=== PATIENT | female | born 1950 | race Caucasian/White ===

== ENCOUNTER 2016-12-20 16:51 | Emergency (ER) | payer OTHER ==
[~2016-12-20 16:51] MED LIST: AMLODIPINE BESYL5 MG PO; BENICAR20 MG PO; BYDUREON IM; COUMADIN2 MG PO; DURAGESIC25 MCG/HR TOP; FOLIC ACID1 MG PO; HUMALOG100 MG/ML SC; ISOSORBIDE MONO30 MG PO; LEVEMIR FL100 UNIT/M SC; LOMOTIL2.5 MG PO; LYRICA25 MG PO; METOPROLOL TAR100 MG PO; METOPROLOL TART25 MG PO; NORCO1 TA1 PO; O2; PREDNISONE10 MG PO; PREDNISONE5 MG PO; TRIAMCINOLONE A0.11 TOP; ZOLOFT50 MG PO
--- NOTE | 2016-12-20 17:54 | DIAGNOSTIC IMAGING REPORT ---
PROCEDURE: XR CHEST 1 VIEW INDICATION: CHEST PAIN TECHNIQUE: Portable AP view 05:50 p.m. COMPARISON: Chest 02/25/1969 02/24/2016 FINDINGS: Poor inspiration. Enlarged right hilum. Mildly increased and lying lung markings. Heart size and pulmonary vessels are normal. Right IJ Port-A-Cath in place with its tip projecting over the right atrium. Thorax is normal. IMPRESSION: 1. Right hilar mass 2. Right IJ Port-A-Cath with its tip projecting over the right atrium
--- NOTE | 2016-12-20 20:16 | ED NURSING NOTES ---
Clinical Report - Nurses [facility] [address] [place] [address] 12/20/2016 16:52 Patient: VIGNESH GAMEZ TRIAGE Triage time 1653 PM. Acuity: LEVEL 2. Chief Complaint: CHEST PAIN and DISCOMFORT. Alert. No acute distress. SEPSIS SCREEN: Sepsis Screen. Negative (no infection suspected/documented). SANDRA COMA SCORE: Garrison Coma Scale: 15- eyes open spontaneously (4); best verbal response- oriented x 4 (5); best motor response- obeys commands (6). --17:08 Antonia Rodriguez R.N. 16:53 12/20/16. BP: 79/49 (regular adult cuff) taken on the left arm, via an automated monitor, while lying. HR: 91. RR: 18. O2 saturation: 89%. Temp: 97.5 F. Pain level now: 01/13. --17:08 Antonia Rodriguez R.N. 17:22 12/20/16. BP: 106/48. HR: 87. RR: 13. O2 saturation: 96% on nasal cannula at 2 liters/minute. Pain level now: 01/13. --17:30 Antonia Rodriguez R.N. Weight: 78 kg stated. Height/Length: 61 inches. BMI: 32.5. Growth Chart Percentile: Weight: 100%. Height/Length: 100%. --16:54 Antonia Rodriguez R.N. Medications Benicar Oral 25 mg, daily. Bydureon Subcutaneous (Suspension Reconstituted 2 mg), once a week. Folic Acid Oral 1 mg, daily. HumaLOG Subcutaneous 50 units, before meals. Isosorbide Dinitrate ER Oral 30 mg, daily. Lomotil Oral (Tablet 2.5-0.025 mg), 4x a day as needed. Lyrica Oral (Capsule 75 mg) 1 capsule, 3x a day. Eldora Oral (Tablet 10-325 mg) 1 tablet, 4x a day. PredniSONE Oral 5 mg, daily. Sertraline HCl Oral 50 mg, daily. Triamcinolone Acetonide External (Cream 0.1 %), as needed. Warfarin Sodium Oral 2 mg, daily. --17:24 Antonia Rodriguez R.N. Trulicity Subcutaneous. --17:25 Antonia Rodriguez R.N. Lasix Oral. --17:25 Antonia Rodriguez R.N. Plavix Oral. --17:58 Antonia Rodriguez R.N. Medication/allergy information source: the patient. --17:08 Antonia Rodriguez R.N. Allergies asparatame. Avandia. Gabapentin. Latex. latex adhesive. LIsinopril. Metformin. --17:24 Antonia Rodriguez R.N. History Arrived by private vehicle. Historian: patient. Primary physician (Dr Ellison). ( Pt states being at her granddaughter basketball game and started feeling CP/SOB/sweaty/nausea. Pt does admit to having diarrhea). This started today. She has had difficulty breathing and nausea. Reports experiencing sweating episodes. No fever or cough. Treatment PROJECT RESERVOIR ENGINEER: None. PAST MEDICAL HX: Diabetes mellitus. Hypertension. Heart disease. Lung disease. Immunizations: up-to-date. SOCIAL HX: Former smoker. No alcohol use or drug use. No infectious disease exposure. ABUSE ASSESSMENT: No report of abuse. SELF HARM ASSESSMENT: A self harm assessment was performed. The patient answered "no" to the question "Do you have thoughts of harming or killing yourself?" and "Have you recently had thoughts about harming or killing others?". FALL RISK ASSESSMENT: Fall risk assessment completed. No fall risk identified. NUTRITIONAL RISK ASSESSMENT: The nutritional risk assessment revealed no deficiencies. FUNCTIONAL ASSESSMENT: Functional assessment: no impairments noted. LEARNING NEEDS ASSESSMENT: The learning needs assessment revealed no barriers. SKIN INTEGRITY ASSESSMENT: Skin integrity risk assessment completed. No skin integrity risk identified. --17:08 Antonia Rodriguez R.N. PROBLEMS: Hypoxia. Dehydration. Lupus. Cholitis. Changed Mental Status. Lung Cancer. COPD - Chronic Obstructive Pulmonary Disease. Degenerative Joint Disease. Atrial Fibrillation. Depression. --17:01 Antonia Rodriguez R.N. The following entry was modified by Antonia Rodriguez R.N., 17:28 <<STRICKEN ENTRY-- Diabetes Mellitus. --19:11 Antonia Rodriguez R.N. --END STRIKE>> The following entry was modified by Antonia Rodriguez R.N., 17:28 <<STRICKEN ENTRY-- Heart Disease. --19:11 Antonia Rodriguez R.N. --END STRIKE>> The following entry was modified by Antonia Rodriguez R.N., 17:28 <<STRICKEN ENTRY-- Hypertension. --19:11 Antonia Rodriguez R.N. --END STRIKE>>. ADDITIONAL SURGERIES: Cardiac Catheterization. Foot surgery. Tubal Ligation. --17:02 Antonia Rodriguez R.N. Nerve damage repair- right. PTCA - Percutaneous Transluminal Coronary Angioplasty. Vascular surgery left leg. --17:28 Antonia Rodriguez R.N. Interventions ID band on patient. --17:08 Antonia Rodriguez R.N. PHYSICAL ASSESSMENT To room via wheelchair. GENERAL / NEURO / PSYCH: Alert. Oriented X 4. HEENT: Mucous membranes are pink. RESPIRATORY: Decreased breath sounds in the bases bilaterally. Coarse crackles in the left lung base posteriorly. CVS: Normal sinus rhythm noted. Pulses within normal limits. Pulses: left brachial 2+, left radial 2+, left popliteal pulse, right dorsalis pedis 2+, right posterior tibial 2+ and left posterior tibial 2+. Capillary refill less than 2 seconds. GI / : The patient has had nausea. Abdomen soft and nontender. No abdominal tenderness. EXTREMITIES: No lower extremity edema. No lower extremity edema. No calf tenderness. SKIN: Skin is warm and dry. Normal skin turgor. --17:18 Antonia Rodriguez R.N. NURSING PROGRESS NOTES 17:10 12/20/2016 Site #1 started via IV in the right antecubital space with an 20g angiocath; one attempt. Blood drawn: rainbow set. Labeled in the presence of the patient. Saline lock flushed. --17:10 Antonia Rodriguez R.N. 17:00 12/20/16. BP: 96/46 (regular adult cuff) taken on the left arm, via an automated monitor, while lying. HR: 86. RR: 88. O2 saturation: 97% on nasal cannula at 2 liters/minute. Pain level now: 02/13. --17:20 Antonia Rodriguez R.N. Cardiac rhythm: normal sinus rhythm. The initial plan of care for this patient has been created This plan of care was discussed with the patient. Oxygen administered by nasal cannula at 2 liters. Monitoring of patient in place. Patient ID band checked for patient name, birthdate and medical record number: patient confirmed. Blood samples drawn from the right antecubital space by nurse per protocol ; labeled in presence of the patient and sent to lab: rainbow set. Finger stick glucose: 62; ordered; performed by nurse; result shown to the ED physician. Portable chest x-ray ordered and performed. Patient gowned. Reassurance given. Reassessment after oxygen administered. Two patient identifiers checked. Call light placed in reach. Side rails up x 2. Bed placed in lowest position. Brakes of bed on. --17:20 Antonia Rodriguez R.N. 17:22 12/20/16. ( [place] Juice given for low blood sugar, per order). --17:22 Dallas Trevino R.N. Finger stick glucose: 66; ordered; performed by nurse; result shown to the ED physician. Two patient identifiers checked. --17:49 Antonia Rodriguez R.N. 17:58 12/20/16. BP: 94/39. HR: 90. RR: 15. O2 saturation: 100% on room air. Pain level now: 01/13. --18:00 Antonia Rodriguez R.N. Cardiac rhythm: normal sinus rhythm. change management, pulse oximeter and NIBP monitor placed on patient; monitor alarms on. Reassurance given. The patient is calm. Overall patient status is improved- she states feels better. ( BS at 66, MD aware, unable to urinate, will try again.). HEENT: Denies headache. RESPIRATORY: Denies difficulty breathing. CVS: Denies chest pain. Normal sinus rhythm noted. GI / : Denies nausea. SKIN: Skin is warm. Skin color within normal limits. Side rails up x 2. Bed placed in lowest position. Brakes of bed on. --18:00 Antonia Rodriguez R.N. 18:28 12/20/16. BP: 84/32 (regular adult cuff) taken on the left arm, via an automated monitor, while sitting. HR: 88. RR: 13. O2 saturation: 96% on room air. Pain level now: 01/13. --18:29 Antonia Rodriguez R.N. Cardiac rhythm: normal sinus rhythm. change management, pulse oximeter and NIBP monitor placed on patient; monitor alarms on. Reassurance given. --18:29 Antonia Rodriguez R.N. Finger stick glucose: 117; ordered; performed by nurse; result shown to the ED physician. ( Pt BP at 84/32 asymptomatic, MD Reynolds aware, IVF bolus ordered). --18:36 Antonia Rodriguez R.N. 18:41 12/20/2016 Started bag #1 500 mL IV Fluids IV NS (Saline); at 500 mL/hr over 1 hour(s) via site #1 via IV pump. Allergies verified and confirmed 5 rights. IV patency established. IV site checked: no pain, redness, or swelling. IV flushed thoroughly pre- and post-medication administration. --18:41 Antonia Rodriguez R.N. Cardiac rhythm: normal sinus rhythm. --18:54 Antonia Rodriguez R.N. 18:54 12/20/16. BP: 99/39 (regular adult cuff) taken on the left arm, via an automated monitor, while lying. HR: 87. RR: 17. O2 saturation: 99%. Pain level now: 01/13. --18:54 Antonia Rodriguez R.N. 19:44 12/20/2016 IV Fluids IV NS Discontinued: bag #1. Total amount infused: 500 mL. IV patency established. IV site checked: no pain, redness, or swelling. IV flushed thoroughly. --19:45 Sue Tavarez R.N. 19:55 order caller physician for [facility]. --20:05 Melanie Clemons, ER Tech1 20:00 12/20/16. BP: 115/76 (regular adult cuff) taken on the left arm, via an automated monitor, while sitting. HR: 89. RR: 15. O2 saturation: 95% on room air. Temp: 97.8 F (oral). Pain level now: 01/13. --20:26 Antonia Rodriguez R.N. Reassurance given. Two patient identifiers checked. Call light placed in reach. Side rails up x 2. Bed placed in lowest position. Brakes of bed on. --20:26 Antonia Rodriguez R.N. 20:26 12/20/2016 Site #1 removed upon discharge. Catheter intact. Manual pressure and bandaid applied. --20:31 Antonia Rodriguez R.N. DISPOSITION / DISCHARGE Departure time: 2030 PM. Condition at departure: improved and stable. The goals identified in the patient's plan of care were met. No learning barriers present. Discharge instructions provided and reviewed with the patient. Reviewed warnings (s/s of CP/). Activity restrictions (rest) reviewed. Patient verbalized understanding. Written instructions provided in Tajik. No medication instructions, treatment instructions, referrals given to the patient or diet instructions. The patient was discharged by the physician. She was discharged home and accompanied by spouse. She left the Emergency Department ambulatory and via private vehicle. Patient driving. FALL RISK ASSESSMENT: Fall risk assessment completed. No fall risk identified. SANDRA COMA SCORE: Sandra Coma Scale: 15- eyes open spontaneously (4); best verbal response- oriented x 4 (5); best motor response- obeys commands (6). --20:30 Antonia Rodriguez R.N. 20:27 12/20/16. BP: 118/37 (regular adult cuff) taken on the left arm, via an automated monitor, while sitting. HR: 87. RR: 16. O2 saturation: 96% on room air. Temp: 97.6 F (oral). Pain level now: 12/16. --20:30 Antonia Rodriguez R.N. Locked/Released at 12/20/2016 20:31 by Antonia Rodriguez R.N.
--- NOTE | 2016-12-20 20:16 | ED ORDER SUMMARY ---
..... Patient: VIGNESH GAMEZ OrderSheet [facility] VisitID: [id number] [address] [place] [address] 66y, F Registration Date/Time: 12/20/2016 ORDER SHEET Weight: 78.0 kg (stated) Allergies: asparatame, Avandia, Gabapentin, Latex, latex adhesive, LIsinopril, Metformin GENERAL ORDERS: Chest 1V Urgent (17:03 12/20/2016 Darlene Sim) (Ack 17:08 OHouse ER Tech1) (17:10 EHassan R.N.) Director Of Acquisitions (Continuous) (cp) (17:03 12/20/2016 Darlene Sim) (17:10 EHassan R.N.) CBC w Diff Urgent (17:03 12/20/2016 Darlene Sim) (Ack 17:08 Filament Labsouse ER Tech1) (17:10 EHassan R.N.) CMP Urgent (17:03 12/20/2016 Darlene Sim) (Ack 17:08 NHouse ER Tech1) (17:10 EHassan R.N.) PT with INR Urgent (17:03 12/20/2016 Darlene Sim) (Ack 17:08 NHouse ER Tech1) (17:10 EHassan R.N.) PTT Urgent (17:03 12/20/2016 Darlene Sim) (Ack 17:08 OHouse ER Tech1) (17:10 EHassan R.N.) Troponin-I Urgent (17:03 12/20/2016 Darlene Sim) (Ack 17:08 NHouse ER Tech1) (17:10 EHassan R.N.) D-Dimer Urgent (17:03 12/20/2016 Darlene Sim) (Ack 17:08 OHouse ER Tech1) (17:10 EHassan R.N.) Pulse oximeter (17:03 12/20/2016 Darlene Sim) (17:10 EHassan R.N.) EKG - ER Stat (17:03 12/20/2016 Darlene Sim) (17:09 NHouse ER Tech1) UA-Culture if indicated Urgent (17:04 12/20/2016 Darlene Sim) (Ack 17:08 NHouse ER Tech1) (17:10 EHassan R.N.) - (PO juice) (17:15 12/20/2016 Darlene Sim) (17:16 NHouse ER Tech1) POC Glucose (at 17:30) (17:15 12/20/2016 Darlene Sim) (17:21 JRomanelli R.N.) Troponin-I (redraw 2 horus after first draw) Urgent (18:05 12/20/2016 Darlene Sim) (Ack 18:07 NHouse ER Tech1) (18:41 EHassan R.N.) POC Glucose (18:35) (18:06 12/20/2016 Darlene Sim) (18:41 EHassan R.N.) Consult - Mortgage Loan Originator (Dr. Ingram) (19:54 12/20/2016 Darlene Sim) (Ack 19:57 AMcQuoid ER Tech1) (20:04 AMcQuoid ER Tech1) MEDICATION ORDERS: IV FLUIDS: IV Saline Lock (17:03 12/20/2016 Darlene Sim) (17:10 EHassafadi R.N.) IV NS : initial bolus 500 mL (1000 mL/hr), then none - for X1 (NOW) (18:36 12/20/2016 Darlene Sim) (18:41 EHassafadi R.N.) ORDER SHEET NOTES: [Electronically signed by Antonia Rodriguez R.N. (20:31 12/20/2016)] [Electronically signed by Tyree Reynolds Dr. (00:33 12/22/2016)] [Electronically locked/signed by Antonia Rodriguez R.N. (20:31 12/20/2016)]
--- NOTE | 2016-12-20 20:16 | ED CLINICAL REPORT ---
Clinical Report - Physicians/Mid Levels [facility] [address] [place] [address] 12/20/2016 16:52 Patient: VIGNESH GAMEZ Time Seen: 1651. Arrived- By private vehicle. Historian- patient. HISTORY OF PRESENT ILLNESS Chief Complaint: CHEST PAIN. At its maximum, severity described as moderate. When seen in the E.D., severity described as moderate. Modifying factors. Not worsened by anything. Not relieved by anything. It is described as discomfort and it is described as located in the central chest area. No radiation. This started today and is still present but is improving. It was abrupt in onset and has been constant but is not gone now. Onset during rest. No nausea, vomiting, difficulty breathing or diaphoresis. No additional chest pain. Similar symptoms previously: None. ( reports hx of "heart attack" but this feels different). Recent medical care: Not recently seen/assessed. REVIEW OF SYSTEMS No fever, chills or skin rash. All systems otherwise negative, except as recorded above. PAST HISTORY See nurses notes. Medications: Plavix Oral. Lasix Oral. Trulicity Subcutaneous. Benicar Oral 25 mg, daily. Bydureon Subcutaneous (Suspension Reconstituted 2 mg), once a week. Folic Acid Oral 1 mg, daily. HumaLOG Subcutaneous 50 units, before meals. Isosorbide Dinitrate ER Oral 30 mg, daily. Lomotil Oral (Tablet 2.5-0.025 mg), 4x a day as needed. Lyrica Oral (Capsule 75 mg) 1 capsule, 3x a day. Austin Oral (Tablet 10-325 mg) 1 tablet, 4x a day. PredniSONE Oral 5 mg, daily. Sertraline HCl Oral 50 mg, daily. Triamcinolone Acetonide External (Cream 0.1 %), as needed. Warfarin Sodium Oral 2 mg, daily. Allergies: asparatame. Avandia. Gabapentin. Latex. latex adhesive. LIsinopril. Metformin. SOCIAL HISTORY Former smoker. No alcohol use or drug use. No recent travel. Is a local resident. FAMILY HISTORY Negative. ADDITIONAL NOTES The nursing notes have been reviewed. PHYSICAL EXAM Vital Signs: 12/20/2016 16:53 BP: 79/49. HR: 91. RR: 18. O2 saturation: 89%. Temp: 97.5 F. Pain level now: 3/10. Blood pressure normal. Oxygen saturation normal. Appearance: Alert. Oriented X3. No acute distress. Eyes: Pupils equal, round and reactive to light. Eyes normal inspection. ENT: Ears normal. Nose normal. Pharynx normal. Neck: Normal inspection. Neck supple. CVS: Normal heart rate and rhythm. Heart sounds normal. Pulses normal. No decreased pulses. Respiratory: No respiratory distress. Breath sounds normal. Chest nontender. Abdomen: Soft and nontender. Bowel sounds normal. No mass. Back: Normal external inspection. Skin: Skin warm and dry. Normal skin color. No rash. Normal skin turgor. Extremities: Extremities exhibit normal ROM. No lower extremity edema. LABS, X-RAYS, AND EKG EKG: No acute ischemia. Normal sinus rhythm. Normal P waves. Normal MAURICIO. Normal QRS complex. Normal axis. Normal ST and T waves, QT and QTc. The study has been interpreted contemporaneously by me. The study has been independently viewed by me. The EKG appears to be a good tracing. Chest X-ray: (PROCEDURE: XR CHEST 1 VIEW INDICATION: CHEST PAIN TECHNIQUE: Portable AP view 05:50 p.m. COMPARISON: Chest 02/25/1969 02/24/2016 FINDINGS: Poor inspiration. Enlarged right hilum. Mildly increased and lying lung markings. Heart size and pulmonary vessels are normal. Right IJ Port-A-Cath in place with its tip projecting over the right atrium. Thorax is normal. IMPRESSION: 1. Right hilar mass 2. Right IJ Port-A-Cath with its tip projecting over the right atrium). Laboratory Tests: CBC w Diff: (LUZ: 12/20/2016 17:00) ( MsgRcvd 12/20/2016 17:16) Final results Test Result Flag Units (Reference) WHITE BLOOD COUNT 12.9 H K/uL (4.5-11.5) RED BLOOD COUNT 3.38 L M/uL (4.00-5.20) HEMOGLOBIN 10.2 L gm/dL (12.0-16.0) HEMATOCRIT 30.4 L % (36.0-46.0) MEAN CELL VOLUME 90 fL (80-100) MEAN CORPUSCULAR HGB 30 pg (26-34) MEAN CORPUSCULAR HGB CONC 34 g/dL (31-37) RED CELL DISTRIBUTION WIDTH 16.7 H % (11.6-14.8) PLATELET COUNT 388 K/uL (150-400) NEUTROPHIL % 66.5 % (50-75) LYMPH % 23.1 L % (25-40) MONO % 7.0 % (3-14) EOSINOPHIL % 3.1 % (0-4) BASOPHIL % 0.3 % (0-2) PT with INR: (LUZ: 12/20/2016 17:00) ( Mscvd 12/20/2016 17:29) Final results Test Result Flag Units (Reference) INR 2.0 H (0.8-1.2) Low Intensity Therapy: INR 1.5-2.0 PT range 18.5-23.1Mod.Intensity Therapy: INR 2.0-3.0 PT range 23.1-31.5High Intensity Therapy: INR 2.5-3.5 PT range 27.4-35.5High Intensity Therapy 2: INR 3.0-4.0 PT range 31.5-39.3 APTT 28 SECONDS (24-34) D-DIMER QUANTITATIVE 0.27 ug/mLFEU (0.27-0.52) The primary value of this quantitative assay relates toits negative predictive value (i.e. exclusion) of pulmonaryembolism/deep vein thrombosis/DIC.Elevated levels of d-dimer may also occur with:, age, cancer, inflammation, liver disease,post-op, infection, hematoma, coronary disease, peripheralarteriopathy, bleeding disorders and thrombolytic treatment.Results should be correlated with other clinical andradiological data.Testing Methodology: Latex Immunoassay Troponin-I: (LUZ: 12/20/2016 19:16) ( MsgRcvd 12/20/2016 19:47) Final results Test Result Flag Units (Reference) TROPONIN I <0.05 ng/mL (0.00-1.5) TROPONIN REFERENCE RANGE:<0.1 NEGATIVE0.1-1.5 INDETERMINANT>1.5 POSITIVE CMP: (LUZ: 12/20/2016 17:00) ( MsgRcvd 12/20/2016 17:32) Final results Test Result Flag Units (Reference) GLUCOSE 60 L mg/dL (70-110) BUN 20 H mg/dL (7-18) CREATININE 1.4 H mg/dL (0.6-1.3) Estimated GFR 39.74 mL/min Estimated GFR- 48.17 mL/min Note: Persistent reduction over 3 months in eGFR<60 mL/min/1.73 m2 defines CKD. Patients with eGFR values>=60 mL/min/1.73 m2 may also have CKD if evidence ofpersistent proteinuria. Additional information may be foundat www.kidney.org. SODIUM 143 mmol/L (136-145) POTASSIUM 3.0 L mmol/L (3.5-5.1) CHLORIDE 103 mmol/L (98-107) CARBON DIOXIDE 29 mmol/L (21-32) CALCIUM 8.3 L mg/dL (8.5-10.1) TOTAL PROTEIN 7.5 g/dL (6.4-8.2) ALBUMIN 3.3 g/dL (3.3-5.0) BILIRUBIN, TOTAL 0.4 mg/dL (0.0-1.0) ALKALINE PHOSPHATASE 59 U/L (46-116) AST (SGOT) 28 U/L (15-37) ALT (SGPT) 35 U/L (12-78) TROPONIN I <0.05 ng/mL (0.00-1.5) TROPONIN REFERENCE RANGE:<0.1 NEGATIVE0.1-1.5 INDETERMINANT>1.5 POSITIVE . PROGRESS AND PROCEDURES Course of Care: the patient is a pleasant 66-year-old female with past medical history significant for lung cancer and coronary artery disease presenting for evaluation of chest pain. The patient was resting in bed and in no acute distress. Patient with hypotension on evaluation however likely due to abnormality with the blood pressure cuff. The patient with normal mentation. Pulses are noted to be strong and equal in the upper and lower extremities bilaterally. We will readdress once a proper fitting blood pressure cuff is obtained and patient has been settled. At this time differential diagnosis includes pulmonary embolism, acute myocardial infarction, continues to pneumothorax, pneumonia. Initial workup is noted to be unremarkable. Patient's EKG does not show any acute concerning findings. Chest x-ray does not show any acute findings either. Records were requested from [place]. [facility] currently awaiting these records. Laboratory studies show a slightly elevated white blood cell count at 12.9. Initial troponin is noted to be negative. Because of the patient's symptoms started just prior to arrival, additional troponin will be ordered. We are currently awaiting the patient's delta troponin to return. Of note, d-dimer is noted to be negative. Do not feel patient has pulmonary embolism. The patient's workup is noted to be negative for a delta troponin as well as initial troponin. Laboratory studies does not show any other acute abnormalities. Because of this, we'll consult the patient's sole rounding machine operator for further input. was able to speak to the patient's circulation supervisor sole rounding machine operator Dr. Paige. Patient with negative workup here in the emergency department. Patient is stable for outpatient management. Patient instructed to contact her sole rounding machine operator for follow-up appointment in clinic. I discussed with patient workup, diagnosis, home care, follow-up, and return precautions. All questions answered. The patient expressed understanding of these instructions and was agreeable to them. Consult obtained from cardiology. Disposition: Discharged. Condition: good. CLINICAL IMPRESSION Chest pain characterized as "discomfort" .12 lead EKG performed. (acute). 12/20/2016 18:54 BP: 99/39. HR: 87. RR: 17. O2 saturation: 99%. Pain level now: 3/10. Blood pressure normal. Oxygen saturation normal. Hypoglycemia without coma- associated with type 2 diabetes (acute). INSTRUCTIONS Warnings: GENERAL WARNINGS: Return or contact your physician immediately if your condition worsens or changes unexpectedly, if not improving as expected, or if other problems arise. SPECIFICALLY, return if you develop chest, neck, jaw, shoulder, arm, or back pain, difficulty breathing, a fluttering sensation in your chest, lightheadedness, fainting, excessive fatigue, or sudden sweating. Your Current Medications: CONTINUE TAKING THE FOLLOWING MEDICATIONS: Benicar Oral : 25 mg daily. Bydureon Subcutaneous : Suspension Reconstituted 2 mg, once a week. Folic Acid Oral : 1 mg daily. HumaLOG Subcutaneous : 50 units before meals. Isosorbide Dinitrate ER Oral : 30 mg daily. Lasix Oral. Lomotil Oral : Tablet 2.5-0.025 mg, 4x a day, prn. Lyrica Oral : Capsule 75 mg, 1 capsule 3x a day. Austin Oral : Tablet 10-325 mg, 1 tablet 4x a day. Plavix Oral. PredniSONE Oral : 5 mg daily. Sertraline HCl Oral : 50 mg daily. Triamcinolone Acetonide External : Cream 0.1 %, prn. Trulicity Subcutaneous. Warfarin Sodium Oral : 2 mg daily. Follow-up: Return to the emergency department as needed. Follow up with your doctor in three days. Reason for referral: recheck today's concerns. Summary of care provided to patient via paper. Screening today revealed the patient's blood pressure to be in the normal range. The patient should follow up with a primary care provider for blood pressure management. Understanding of the discharge instructions verbalized by patient. (Electronically signed by Tyree Reynolds Dr. 12/22/2016 0:33)
--- NOTE | 2016-12-20 20:16 | ED ORDER SUMMARY ---
..... Patient: VIGNESH GAMEZ OrderSheet [facility] VisitID: [id number] [address] [place] [address] 66y, F Registration Date/Time: 12/20/2016 ORDER SHEET Weight: 78.0 kg (stated) Allergies: asparatame, Avandia, Gabapentin, Latex, latex adhesive, LIsinopril, Metformin GENERAL ORDERS: Chest 1V Urgent (17:03 12/20/2016 Darlene Sim) (Ack 17:08 PRouse ER Tech1) (17:10 EHassan R.N.) Utility Clerk (Continuous) (cp) (17:03 12/20/2016 Darlene Sim) (17:10 EHassan R.N.) CBC w Diff Urgent (17:03 12/20/2016 Darlene Sim) (Ack 17:08 Sanovasouse ER Tech1) (17:10 EHassan R.N.) CMP Urgent (17:03 12/20/2016 Darlene Sim) (Ack 17:08 NHouse ER Tech1) (17:10 EHassan R.N.) PT with INR Urgent (17:03 12/20/2016 Darlene Sim) (Ack 17:08 NHouse ER Tech1) (17:10 EHassan R.N.) PTT Urgent (17:03 12/20/2016 Darlene Sim) (Ack 17:08 PRouse ER Tech1) (17:10 EHassan R.N.) Troponin-I Urgent (17:03 12/20/2016 Darlene Sim) (Ack 17:08 NHouse ER Tech1) (17:10 EHassan R.N.) D-Dimer Urgent (17:03 12/20/2016 Darlene Sim) (Ack 17:08 PRouse ER Tech1) (17:10 EHassan R.N.) Pulse oximeter (17:03 12/20/2016 Darlene Sim) (17:10 EHassan R.N.) EKG - ER Stat (17:03 12/20/2016 Darlene Sim) (17:09 NHouse ER Tech1) UA-Culture if indicated Urgent (17:04 12/20/2016 Darlene Sim) (Ack 17:08 NHouse ER Tech1) (17:10 EHassan R.N.) - (PO juice) (17:15 12/20/2016 Darlene Sim) (17:16 NHouse ER Tech1) POC Glucose (at 17:30) (17:15 12/20/2016 Darlene Sim) (17:21 JRomanelli R.N.) Troponin-I (redraw 2 horus after first draw) Urgent (18:05 12/20/2016 Darlene Sim) (Ack 18:07 NHouse ER Tech1) (18:41 EHassan R.N.) POC Glucose (18:35) (18:06 12/20/2016 Darlene Sim) (18:41 EHassan R.N.) Consult - Cotton Picker Operator (Dr. Ingram) (19:54 12/20/2016 Darlene Sim) (Ack 19:57 AMcQuoid ER Tech1) (20:04 AMcQuoid ER Tech1) MEDICATION ORDERS: IV FLUIDS: IV Saline Lock (17:03 12/20/2016 Darlene Sim) (17:10 EHassafadi R.N.) IV NS : initial bolus 500 mL (1000 mL/hr), then none - for X1 (NOW) (18:36 12/20/2016 Darlene Sim) (18:41 EHassafadi R.N.) ORDER SHEET NOTES: [Electronically signed by Antonia Rodriguez R.N. (20:31 12/20/2016)] [Electronically signed by Tyree Reynolds Dr. (00:33 12/22/2016)] [Electronically locked/signed by Antonia Rodriguez R.N. (20:31 12/20/2016)]
--- NOTE | 2016-12-22 00:34 | ED MED RECONCILIATION SUMMARY ---
Patient: VIGNESH GAMEZ Medication Reconciliation Report [facility] VisitID: [id number] [address] [place] [address] 66y, F Registration Date/Time: 12/20/2016 Weight: 78.0 kg Height/Length: 61 in. BMI: 32.5 ALLERGIES: asparatame, Avandia, Gabapentin, Latex, latex adhesive, LIsinopril, Metformin The patient's Home Medications are listed below: CONTINUE TAKING THE FOLLOWING MEDICATIONS: Benicar Oral 25 mg, daily Bydureon Subcutaneous (2 mg), once a week Folic Acid Oral 1 mg, daily HumaLOG Subcutaneous 50 units, before meals Isosorbide Dinitrate ER Oral 30 mg, daily Lasix Oral Lomotil Oral (2.5-0.025 mg), 4x a day Lyrica Oral (75 mg) 1 capsule, 3x a day [place] Oral (10-325 mg) 1 tablet, 4x a day Plavix Oral PredniSONE Oral 5 mg, daily Sertraline HCl Oral 50 mg, daily Triamcinolone Acetonide External (0.1 %) Trulicity Subcutaneous Warfarin Sodium Oral 2 mg, daily The source(s) of the original Home Medication information: patient The following Medications were given to the patient in the Emergency Department: IV NS IV Fluids bolus 0, then 500 mL/hr, administered: 12/20/2016 6:41:00 PM The following Medications were prescribed to the patient: None.
--- NOTE | 2016-12-22 00:34 | ED MAR SUMMARY ---
..... Medication Administration Record [facility] [address] [place] [address] Patient: VIGNESH GAMEZ Visit ID: [id number] 66y, F Weight: 78.0 kg Height/Length: 61 in BMI: 32.5 ALLERGIES: asparatame, Avandia, Gabapentin, Latex, latex adhesive, LIsinopril, Metformin Start 18:41 12/20/2016 Antonia Rodriguez RNohemiNNohemi, Stop 19:44 12/20/2016 Sue Tavarez RMonster Medication Administered: IV NS (SALINE), Dose: IV Fluids over 1 hour(s), Rate: 500 mL/hr, Dispensed: 500 mL bag, Site: #1 right AC. Medication Ordered: IV NS : initial bolus 500 mL (1000 mL/hr), then none - for X1 (NOW).
--- NOTE | 2016-12-22 00:34 | ED MAR SUMMARY ---
..... Medication Administration Record [facility] [address] [place] [address] Patient: VIGNESH GAMEZ Visit ID: [id number] 66y, F Weight: 78.0 kg Height/Length: 61 in BMI: 32.5 ALLERGIES: asparatame, Avandia, Gabapentin, Latex, latex adhesive, LIsinopril, Metformin Start 18:41 12/20/2016 Antonia Rodriguez RNohemiNNohemi, Stop 19:44 12/20/2016 Sue Tavarez RMonster Medication Administered: IV NS (SALINE), Dose: IV Fluids over 1 hour(s), Rate: 500 mL/hr, Dispensed: 500 mL bag, Site: #1 right AC. Medication Ordered: IV NS : initial bolus 500 mL (1000 mL/hr), then none - for X1 (NOW).
--- NOTE | 2016-12-22 00:34 | ED MED RECONCILIATION SUMMARY ---
Patient: VIGNESH GAMEZ Medication Reconciliation Report [facility] VisitID: [id number] [address] [place] [address] 66y, F Registration Date/Time: 12/20/2016 Weight: 78.0 kg Height/Length: 61 in. BMI: 32.5 ALLERGIES: asparatame, Avandia, Gabapentin, Latex, latex adhesive, LIsinopril, Metformin The patient's Home Medications are listed below: CONTINUE TAKING THE FOLLOWING MEDICATIONS: Benicar Oral 25 mg, daily Bydureon Subcutaneous (2 mg), once a week Folic Acid Oral 1 mg, daily HumaLOG Subcutaneous 50 units, before meals Isosorbide Dinitrate ER Oral 30 mg, daily Lasix Oral Lomotil Oral (2.5-0.025 mg), 4x a day Lyrica Oral (75 mg) 1 capsule, 3x a day [place] Oral (10-325 mg) 1 tablet, 4x a day Plavix Oral PredniSONE Oral 5 mg, daily Sertraline HCl Oral 50 mg, daily Triamcinolone Acetonide External (0.1 %) Trulicity Subcutaneous Warfarin Sodium Oral 2 mg, daily The source(s) of the original Home Medication information: patient The following Medications were given to the patient in the Emergency Department: IV NS IV Fluids bolus 0, then 500 mL/hr, administered: 12/20/2016 6:41:00 PM The following Medications were prescribed to the patient: None.
--- NOTE | 2016-12-22 00:34 | ED DISCHARGE INSTRUCTIONS ---
Patient: VIGNESH GAMEZ General Instructions [facility] VisitID: [id number] [place] [address] 66y, F Registration Date/Time: 12/20/2016 Chest pain characterized as "discomfort" .12 lead EKG performed. (acute). 12/20/2016 18:54 BP: 99/39. HR: 87. RR: 17. O2 saturation: 99%. Pain level now: 01/13. Blood pressure normal. Oxygen saturation normal. Hypoglycemia without coma- associated with type 2 diabetes (acute). INSTRUCTIONS Warnings: GENERAL WARNINGS: Return or contact your physician immediately if your condition worsens or changes unexpectedly, if not improving as expected, or if other problems arise. SPECIFICALLY, return if you develop chest, neck, jaw, shoulder, arm, or back pain, difficulty breathing, a fluttering sensation in your chest, lightheadedness, fainting, excessive fatigue, or sudden sweating. Your Current Medications: CONTINUE TAKING THE FOLLOWING MEDICATIONS: Benicar Oral : 25 mg daily. Bydureon Subcutaneous : Suspension Reconstituted 2 mg, once a week. Folic Acid Oral : 1 mg daily. HumaLOG Subcutaneous : 50 units before meals. Isosorbide Dinitrate ER Oral : 30 mg daily. Lasix Oral. Lomotil Oral : Tablet 2.5-0.025 mg, 4x a day, prn. Lyrica Oral : Capsule 75 mg, 1 capsule 3x a day. [place] Oral : Tablet 10-325 mg, 1 tablet 4x a day. Plavix Oral. PredniSONE Oral : 5 mg daily. Sertraline HCl Oral : 50 mg daily. Triamcinolone Acetonide External : Cream 0.1 %, prn. Trulicity Subcutaneous. Warfarin Sodium Oral : 2 mg daily. Follow-up: Return to the emergency department as needed. Follow up with your doctor in three days. Reason for referral: recheck today's concerns. Summary of care provided to patient via paper. Screening today revealed the patient's blood pressure to be in the normal range. The patient should follow up with a primary care provider for blood pressure management. Understanding of the discharge instructions verbalized by patient. ADDITIONAL INFORMATION Chest Pain, Uncertain Cause Chest pain can happen for a number of reasons. Sometimes the cause can not be determined. If yourcondition does not seem serious, and your pain does not appear to be coming from your heart, your doctor may recommend watching it closely. Sometimes the signs of a serious problem take more time to appear. Therefore, watch for the warning signs listed below. Home care After your visit, follow these recommendations: Rest today and avoid strenuous activity. Take any prescribed medicine as directed. Follow-up care Follow up with your doctor or this facility as instructed or if you do not start to feel better within 24 hours. Call 911 Get immediate medical attention if any of the following occur: A change in the type of pain: if it feels different, becomes more severe, lasts longer, or begins to spread into your shoulder, arm, neck, jaw or back Shortness of breath or increased pain with breathing Weakness, dizziness, or fainting Rapid heart beat Get prompt medical attention Call your doctor right away if any of the following occur: Cough with dark colored sputum (phlegm) or blood Fever of 100.4F(38C) or higher, or as directed by your health care provider Swelling, pain or redness in one leg Insulin Reaction (Low Blood Sugar) You have been treated for an insulin reaction today. This occurs when insulin causes your blood sugar to gotoo low(hypoglycemia). It may happen if you take too much insulin. It can also occur from taking your usual amount of insulin, but not eating enough food due to vomiting or loss of appetite. Other causes include heavy exercise, strong emotions, missing meals, and alcohol use. Some people are sensitive to the following, which can also lower blood sugar: tobacco, caffeine and certain medicines [aspirin, Haldol (haloperidol), Darvon or Darvocet (propoxyphene), Thorazine (chlorpromazine), Inderal (propranolol), Norpace (disopyramide)]. If you suspect any of these may be affecting you, stop smoking, switch to decaf coffee, and avoid teas and carmelina that contain caffeine. If you are taking any of the listed medicines, talk to your doctor about switching to another type. A class of medicine called beta blockers is used for high blood pressure, rapid heart rates and other conditions. Beta blockers may prevent the early symptoms of low blood sugar. In that case, you would not know that you were having a reaction until your blood sugar becomes dangerously low. If you are taking a beta alma, talk to your doctor about switching to a different class. The beta alma class includes Inderal (propranolol), Tenormin (atenolol), Lopressor (metoprolol), Corgard (nadolol), Trandateand Normodyne (labetalol) and Coreg (carvedilol). Home Care: During the next 24 hours rest and eat frequent small meals to avoid recurrence of low blood sugar. Learn the warning signals your body gives as your blood sugar starts to drop. See below. Always carry a source of fast-acting sugar with you in case you get symptoms of low blood sugar again. At the first sign of low blood sugar, eat or drink 15 to 20 grams of fast-acting sugar to raise your blood sugar. Examples include: 3 to 4 glucose tablets (found at most drugstores) 4 ounces (1/2 cup) of non-diet cola drinks (Coke, Pepsi, root beer, etc.) 4 ounces (1/2 cup) of fruit juice 2 tablespoons of raisins 1 tablespoon of honey Check your blood sugar 15 minutes after treating yourself. If it is still low, take another 15 to 20 grams of fast-acting sugar. Test again in 15 minutes. If its still low, go to an emergency room. Once your blood sugar returns to normal, eat a snack or meal to keep your blood sugar in a safe range. In the future, if you are not able to eat your normal amount at each meal due to illness or vomiting, you MUST reduce your insulin dose. Contact your doctor to ask for a temporary adjustment of your dose. If you cannot eat, and there is a delay in reaching your doctor, reduce your daily insulin dose to one-half of what you usually take. Check your blood sugar every 4-6 hours. Do this until you are able to begin eating normal amounts again. Wear a medical alert bracelet or carry a card in your wallet explaining that you are diabetic. In the event that you have a severe hypoglycemic reaction and are unable to give this information, it will help medical personnel provide proper care. Follow Up: Check and write down your blood sugar and insulin dose twice a daybefore breakfast and before dinner. Do this for the next 5 days. See your doctor during the next week to review these records. This will help determine if you need to adjust your insulin dose. For more information about diabetes, contact the [place] [employer]. www.diabetes.org or 197-403-5738. Get Prompt Medical Attention if any of the following occur: HIGH BLOOD SUGAR: frequent urination, dizziness, drowsiness, thirst, headache, nausea or vomiting, abdominal pain, vision changes, fast breathing, confusion or loss of consciousness LOW BLOOD SUGAR: fatigue, headache, shakes, excess sweating, hunger, feeling anxious or restless, vision changes, drowsiness, weakness, confusion, or loss of consciousness You have been given the following additional information: Chest Pain, Uncertain Cause Diabetic Insulin Reaction (Electronically signed by Tyree Reynolds Dr. 12/22/2016 0:33)
== END 2016-12-20 20:29 | disposition home or self-care (01) ==
LOC: ED SRH 16:51
DX: R07.89 Other chest pain (principal); E11.65 Type 2 diabetes mellitus with hyperglycemia; Z79.4 Long term (current) use of insulin; Z79.899 Other long term (current) drug therapy; Z79.01 Long term (current) use of anticoagulants; Z91.040 Latex allergy status; I48.91 Unspecified atrial fibrillation
CPT/HCPCS: 90100; 90616; 91556; 94001; 94060; 95059